=== PATIENT | male | born 2000 | race Caucasian/White ===

== ENCOUNTER 2021-10-28 13:05 | Emergency (ER) | payer OTHER, SELFPAY ==
--- NOTE | ~2021-10-28 | US_ITS ---
EXAMINATION: US scrotum doppler DATE: 10/28/2021 15:10 INDICATION: Left testicular pain. TECHNIQUE: Grayscale and Doppler ultrasound images of the testes were obtained. COMPARISON: None. FINDINGS: The right testis measures 5.2 x 3.3 x 2.7 cm. The left testis measures 4.8 x 2.9 x 2.9 cm. There is normal vascular flow to both testes. The right epididymis is normal with normal vascular wendy w. The left epididymis is normal with normal vascular flow. There is no varicocele or hydrocele. IMPRESSION: 1. Normal testes. Reviewed, dictated and finalized at location A. 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 Normal testes.
--- NOTE | ~2021-10-28 | CT_ITS ---
EXAMINATION: CT abdomen pelvis w con DATE: 10/28/2021 14:42 INDICATION: Left and right lower quadrant abdominal pain TECHNIQUE: Computed tomography (CT) of the abdomen and pelvis was performed with 100 cc Omnipaque 350 intravenous contrast. Automated exposure control and iterative reconstruction technique were employe d. Exam dose: 904.42 mGy-cm total exam DLP. COMPARISON: None. FINDINGS: There is a right lower lobe calcified pulmonary granuloma. The lung bases are clear of infi ltrate or consolidation. Heart size is normal. No pericardial or pleural effusion. The liver, spleen, gallbladder, bile ducts, pancreas, pancreatic duct and adrenal glands and kidneys are normal. Normal appendix. No bowel obstruction or intraperitoneal free air. The urinary bladder is unremarkabl e. Normal caliber of the abdominal aorta. No intraperitoneal or retroperitoneal or pelvic mass lesion or adenopathy or ascites. Very small fat-containing umbilical hernia. Included skeletal structures are unremarkable. IMPRESSION: Normal appendix; no significant abnormality Reviewed, dictated and finalized at Location A. Reviewed, dictated and finalized at location B. E PAINTER
[2021-10-28 13:10] VITALS: BP 114/58; PULSE 85; RESP 18; TEMP 36.7; O2SAT 98
--- NOTE | 2021-10-28 13:24 | ED.ABDPAIN ---
HPI - Abdominal Pain General Chief Complaint: Abdominal Pain Stated Complaint: abdominal pain Time Seen by Provider: 10/28/21 13:24 Source: patient Mode of arrival: ambulatory Limitations: no limitations History of Present Illness HPI narrative: The patient is a 20 yo previously healthy male presenting to the ER for evaluation of back and abdominal pain. Patient reporting bilateral lower back pain, worse on the left. Pt reports abdominal pain as well as scrotal pain in the left testicle. Pts pain worsening, migratory throughout his entire abdomen. Pt went to urgent care this morning and was referred to this facility for evaluation.He denies fever, chills, vomiting. He reports mild nausea. He is not constipated or having diarrhea. No dysuria or hematuria. No frequency or hesitancy. No history of nephrolithiasis. Patient denies any testicular swelling, redness, bruising. He denies rectal pain. He is sexually active, one female partner. Denies history of sexually transmitted infection. Denies penile or scrotal lesions. Denies penile discharge. Denies any swelling. Related Data Allergies Allergy/AdvReac Type Severity Reaction Status Date / Time No Known Allergies Allergy Mild Verified 10/28/21 13:42 Review of Systems Review of Systems: CONSTITUTIONAL: Denies fever, chills, or sweats. EYES: Denies visual changes, redness, or discharge. ENT: Denies rhinorrhea, congestion, sore throat, or otalgia. CARDIOVASCULAR: Denies chest pain, palpitations, or edema. RESPIRATORY: Denies cough or dyspnea. GASTROINTESTINAL: Reporting abdominal pain, nausea GENITOURINARY: Denies dysuria or hematuria. Reporting scrotal pain. SKIN: Denies rash or itching. MUSCULOSKELETAL: Reporting middle back pain, joint pain, or myalgia. NEUROLOGIC: Denies headache, numbness, or weakness. [facility] Social History Social History (Updated 10/28/21 @ 13:51 by Ligia Henley MD) Smoking status: Current every day smoker Tobacco type: e-cigarettes/vaping Alcohol intake: never Substance use: never Gender identity (if verbalized by the patient): Male Exam Narrative: GENERAL: Awake, alert, conversant HEAD: Normocephalic, atraumatic. EYES: PERRLA and EOMI. ENT: Nares clear, no rhinorrhea or epistaxis. Mucous membranes moist. NECK: Supple. CHEST: No respiratory distress, breathing even and non labored HEART: Regular rate, sinus rhythm ABDOMEN:Non distended, non tender, left CVA tenderness : Testicles are normal without edema, induration, ecchymosis, no crepitus. No lymphadenopathy bilaterally. Penis is uncircumcised, normal, glans is normal, no discharge. Shaft is normal without lesions or edema. Left testicle is mildly tender to deep palpation. No hernias palpated. Rectum is normal, no hemorrhoids. Good tone. No melanotic stool. No edema, induration. No evidence of abscess. EXTREMITIES: Normal range of motion. No edema. SKIN: Warm, dry, no rash. NEURO:No focal deficits. Alert and oriented x3 Course Vital Signs Vital signs: Vital Signs Temperature 36.7 C 10/28/21 13:10 Pulse Rate 85 10/28/21 13:10 Respiratory Rate 18 10/28/21 13:10 Blood Pressure 114/58 L 10/28/21 13:10 Pulse Oximetry 98 10/28/21 13:10 Temperature 36.7 C 10/28/21 13:10 Pulse Rate 85 10/28/21 13:10 Respiratory Rate 18 10/28/21 13:10 Blood Pressure 114/58 L 10/28/21 13:10 Pulse Oximetry 98 10/28/21 13:10 MDM - Abdominal Pain MDM Narrative Medical decision making narrative: Patient presenting for evaluation of abdominal pain. Testicular pain. On exam, patient does not have any findings consistent with testicular torsion. No testicular edema, erythema, induration. No ecchymosis. Rectal exam, patient with good tone, no hemorrhoids, no evidence of perirectal or perianal abscess. No tenderness on exam. Laboratory results are reassuring. No leukocytosis, no electrolyte derangement. CT imaging is very reassuring. At the time of jazmin
[2021-10-28 14:20] LABS: Basophils Percent Auto 0.2 % (0.2-1.2); Eosinophils Absolute Auto 0.1 K/mm3 (0-0.3); Hematocrit 47.4 % (42.0-52.0); Hemoglobin 16.2 g/dL (14.0-18.0); Immature Granulocyte Absolute 0.04 K/mm3 (0.00-0.031); Immature Granulocyte Percent A 0.4 % (0-0.5); Lymphocytes Absolute Auto 1.64 K/mm3 (0.9-3.2); Lymphocytes Percent Auto 17.6 % (18.3-44.2); Mean Corpuscular HGB Conc 34.2 g/dl (32-36); Mean Corpuscular Hemoglobin 30.2 pg (26-34); Mean Corpuscular Volume 88.4 fl (80-100); Mean Platelet Volume 10.8 fl (7.4-10.4); Monocytes Absolute Auto 0.5 K/mm3 (0.1-0.6); Monocytes Percent Auto 5.3 % (2.6-8.5); Neutrophils Percent Auto 75.5 % (45.5-73.1); Platelet Count Result 288 k/mm3 (150-375); Red Blood Count 5.36 M/mm3 (4.6-6.20); White Blood Count 9.3 K/mm3 (4.5-10.0)
[2021-10-28 14:25] LABS: Alanine Aminotransferase 16 U/L (4-50); Albumin Level 5.1 g/dL (3.7-5.6); Alkaline Phosphatase 72 U/L (58-237); Anion Gap 10 mmol/L (8-16); Aspartate Amino Transferase 23 U/L (17-59); Bilirubin,Total 0.5 mg/dL (0.2-1.3); Blood Urea Nitrogen 9 mg/dL (8-21); Calcium 9.5 mg/dL (8.9-10.7); Carbon Dioxide 28 mmol/L (22-30); Chloride 102 mmol/L (98-107); Estimated CRCL calculation 177 ml/min; Estimated Glomerular Filt Rate > 60; Glucose 96 mg/dL (65-110); Lipase 414 U/L (23-300); Potassium 3.9 mmol/L (3.4-5.0); Sodium 140 mmol/L (134-143)
[2021-10-28 14:58] LABS: Add Urine Microscopic? YES; Appearance Urine Clear (Clear); Bilirubin Urine Negative (Negative); Blood Urine Negative (Negative); Calcium Oxalate Crystals Urine Present /hpf; Color Urine Amber (Yellow); Glucose Urine UA Negative (Negative); Ketones Urine Negative (Negative); Leukocyte Esterase Ur Trace LEU/UL (Negative); Mucus Urine Heavy /lpf; Nitrate Urine Negative (Negative); Protein Urine 1+ mg/dL (Negative); Specific Grav Ur 1.032 (1.001-1.035); Squamous Epithelial Cell Urine Rare /hpf (Few); WBC Urine 0-3 /hpf
--- NOTE | 2021-10-28 15:28 | PC.NURSE ---
Called lab and spoke to Guy to add on Concepcion JOYA.
[2021-10-28] MEDS: cefTRIAXone 1 GM VIAL IM (15:44)
[2021-10-28 16:05] VITALS: BP 142/82; PULSE 78; RESP 16; TEMP 36.6; O2SAT 100
== END 2021-10-28 16:06 | disposition home or self-care (01) ==
PROVIDERS: Emergency Provider Emergency Medicine
DX: R10.9 Unspecified abdominal pain (principal); K42.9 Umbilical hernia without obstruction or gangrene; F17.290 Nicotine dependence, other tobacco product, uncomplicated
CPT/HCPCS: 36415; 74177; 76870; 80053; 81001; 83690; 85025; 87491; 87591; 93976; 96372; 96374; 99284; J0131; J0696; Q9967

== ENCOUNTER 2025-06-13 19:11 | Emergency (ER) | payer OTHER, SELFPAY ==
--- OUTSIDE RECORDS SUMMARY | 2024-01-05 08:00 | XMS_ITS ---
Author Organization [facility] Address [address] [place] [address] Care Team Providers Care Laborer Vineyard Name Role Phone Mary Cantor Primary Care Provider [phone] REASON FOR VISIT [phone] New Patient Psych Eval Social History Sex Assigned At : Social History Observation Description Sex Assigned At Male Encounters Encounter Location Date Provider Diagnosis [facility] [place] [address] 01/05/2024 Mary Cantor Plan Of Treatment Next Appt Details Provider Name:Mary dodson, 07/05/2025 08:20:00 AM, [address], [place], [address], Progress Notes * Sanchez COLONDOB: 2 (24 yo M)Acc No.[id number]:01/05/2024 UNLOCKED PROGRESS NOTE Patient: Harmeet Sanchez DELA CRUZ Provider: Stefany Cantor DNP, PMHNP-BC, HEMATOLOGY TECHNOLOGIST :2000 A ge:23 Y S ex:Male Date:01/05/2024 Address:[address] [facility] Subjective: * Chief Complaints: * 1 . [phone] New Patient Psych Eval. * Medical History: Objective: * Vitals: Assessment: Plan: * Treatment: * * Electronic signature of Najma Cantor on 06/13/2025 at 07:13 PM CDT Sign off status: Pending * Provider: Stefany Cantor, BENNY, PMHNP-BC, HEMATOLOGY TECHNOLOGIST Date: 0 01/05/2024 Generated for Printing/Faxing/eTransmitting on: 0 06/13/2025 07:13 PM CDT
--- OUTSIDE RECORDS SUMMARY | 2025-03-27 04:00 | XMS_ITS ---
Author Organization [facility] Address [address] [place] [address] Care Team Providers Care Tobacco Stripping Machine Operator Name Role Phone Mary Cantor Primary Care Provider [phone] Sergio Vazquez [phone] REASON FOR VISIT labs Social History Sex Assigned At : Social History Observation Description Sex Assigned At Male Encounters Encounter Location Date Provider Diagnosis [facility] [place] [address] 03/27/2025 Sergio Vazquez Plan Of Treatment Next Appt Details Provider Name:Mary dodson, 07/05/2025 08:20:00 AM, [address], [place], [address], Progress Notes * Sanchez COLONDOB: 2 (24 yo M)Acc No.[id number]:03/27/2025 UNLOCKED PROGRESS NOTE Patient: Harmeet JUAREZSERAFIN Sanchez Provider: Rizwana Vazquez, MSN, ENVIRONMENTAL PROJECTS ADVISOR, PICTURE PAINTER-C :2000 A ge:24 Y S ex:Male Date:03/27/2025 Address:[address] [facility] Pcp:Mary Cantor Check In:08:38 AM INSPECTOR POISING Subjective: * Chief Complaints: * 1 . Labs. * Medical History: Objective: * Vitals: Assessment: Plan: * Treatment: * * Electronic signature of Katherine Vazquez APRN, [id number] on 06/13/2025 at 07:13 PM CDT Sign off status: Pending * Provider: Rizwana Vazquez, MSN, ENVIRONMENTAL PROJECTS ADVISOR, PICTURE PAINTER-C Date: 0 03/27/2025 Generated for Marilou pena/Jorge/Javi on: 0 06/13/2025 07:13 PM CDT
[2025-06-13 19:13] VITALS: BP 126/79; PULSE 105; RESP 18; TEMP 36.7; O2SAT 97
--- OUTSIDE RECORDS SUMMARY | 2025-06-13 19:13 | XMS_ITS | Clinical Summary ---
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 Gender Identity Not on file Sexual Orientation Not on file Plan of Treatment Health Maintenance Due Date Last Done Comments Hepatitis C Virus (HCV) Screening 2000 Human Papillomavirus (HPV) Immunization (1 - Male 3-dose series) 2016 Meningococcal B Immunization (1 of 2 - Standard) 2017 Influenza Immunization (#1) 2025 08/05/2014 SARS-COV-2 Immunization (2 - season) 2025 12/10/2020 Respiratory Syncytial Virus (RSV) Immunization (Adult) (1 - 1-dose 75+ series) 2076 Hepatitis B Immunization Completed 003, 03/10/2002, 01/06/2002 Measles Mumps Rubella (MMR) Immunization Discontinued 04/16/2006, 03/09/2003 Polio (IPV) Immunization Discontinued 006, 05/12/2002, 03/10/2002, Additional history exists DTaP/Tdap/Td Immunization Discontinued 2012, 04/16/2006, 11/25/2002, Additional history exists TdaP Immunization Completed 03/30/2013 Varicella Immunization Discontinued 04/24/2014, 2002 Meningococcal Immunization (ACWY) Completed 05/17/2019, 03/30/2013 Pneumococcal Immunization Combined Aged Out No longer eligible based on patient's age to complete this topic Rotavirus Immunization Aged Out No lo nger eligible based on patient's age to complete this topic
--- OUTSIDE RECORDS SUMMARY | 2025-06-13 19:14 | XMS_ITS | Patient Health Record ---
Author Organization [facility] Address [address] [place] [address] Care Team Providers Care Medical Assistant Instructor Name Role Phone Mary Cantor Primary Care Provider Taylor Madelintracee Unavailable [phone] SanЮлия schaffer Unavailable [phone] Allergies No Known Allergies Results Component Value Reference Range Notes CMP 14 Comprehensive Metabol ic Panel* Reviewed date:03/30/2025 12:40:24 PM Interpretation:Normal Performing Lab:[facility] [place], [address] [facility], [place], Phone - [phone], Director - Nabila Notes/Report: Glucose 99 70-99 mg/dL BUN 11 6-20 mg/dL Creatinine 0.96 0.76-1.27 mg/dL eGFR 114 >59 mL/min/1.73 BUN/Creatinine Ratio 11 9-20 Sodium 139 134-144 mmol/L Potassium 4.6 3.5-5.2 mmol/L Chloride 100 96-106 mmol/L Carbon Dioxide, Total 25 20-29 mmol/L Calcium 9.8 8.7-10.2 mg/dL Protein, Total 6.8 6.0-8.5 g/dL Albumin 4.6 4.3-5.2 g/dL Globulin, Total 2.2 1.5-4.5 g/dL Bilirubin, Total 0.3 0.0-1.2 mg/dL Alkaline Phosphatase 76 44-121 IU/L AST (SGOT) 34 0-40 IU/L ALT (SGPT) 36 0-44 IU/L CBC With Differential/Platel et* Reviewed date:03/30/2025 12:40:24 PM Interpretation:Normal Performing Lab:[facility], [address] [facility], Phone - [phone], Director - Nabila Notes/Report: WBC 5.7 3.4-10.8 x10E3/uL RBC 5.28 4.14-5.80 x10E6/uL Hemoglobin 16.2 13.0-17.7 g/dL Hematocrit 50.2 37.5-51.0 % MCV 95 79-97 fL MCH 30.7 26.6-33.0 pg MCHC 32.3 31.5-35.7 g/dL RDW 12.6 11.6-15.4 % Platelets 242 150-450 x10E3/uL Neutrophils 64 Not Estab. % Lymphs 24 Not Estab. % Monocytes 7 Not Estab. % Eos 3 Not Estab. % Basos 1 Not Estab. % Neutrophils (Absolute) 3.7 1.4-7.0 x10E3/uL Lymphs (Absolute) 1.4 0.7-3.1 x10E3/uL Monocytes(Absolute) 0.4 0.1-0.9 x10E3/uL Eos (Absolute) 0.2 0.0-0.4 x10E3/uL Baso (Absolute) 0.0 0.0-0.2 x10E3/uL Immature Granulocytes 1 Not Estab. % Immature Grans (Abs) 0.0 0.0-0.1 x10E3/uL Breathalyzer Reviewed date:03/23/2025 11:37:07 AM Interpretation: Performing Lab: Notes/Report: BONY 0.000 14 Panel Urine Drug Screen Reviewed date:03/23/2025 11:38:14 AM Interpretation: Performing Lab: Notes/Report: THC POS VLADISLAV POS MOP (OPI) neg AMP neg MET POS BAR neg BZO neg MDMA neg MTD neg OXY neg PCP neg BUP neg TCA neg FTY neg QuantiFERON-TB Gold Plus (18 5624) Reviewed date:03/30/2025 12:40:24 PM Interpretation:Normal Performing Lab:[facility] [place], [address] [facility], [place], Phone - [phone], Director - Nabila Notes/Report: QuantiFERON Incubation Incubation performed. QuantiFERON-TB Gold Plus Negative Negative No response to M tuberculosis antigens detected. Infection with M tuberculosis is unlikely, but high risk individuals should be considered for additional testing (ATS/IDSA/CDC Clinical Practice Guidelines, 2017). The reference range is an Antigen minus Nil result of <0.35 IU/mL. Chemiluminescence immunoassay methodology QuantiFERON Criteria QuantiFERON-TB Gold Plus is a qualitative indirect test for M tuberculosis infection (including disease) and is intended for use in conjunction with risk assessment, radiography, and other medical and diagnostic evaluations. The QuantiFERON-TB Gold Plus result is determined by subtracting the Nil value from either TB antigen (Ag) value. The Mitogen tube serves as a control for the test. QuantiFERON TB1 Ag Value 0.05 QuantiFERON TB2 Ag Value 0.07 QuantiFERON Nil Value 0.03 QuantiFERON Mitogen Value >10.00 Reason For Referral Reason Therapy- including g rief of friend. High PHQ9 score. On the crisis unit. He reports that since he has been admitted that he has not been feeling like hurting himself. Diagnosis 1 Bipolar 1 disorder ( F31.9) Referral Organization [facility] Referring Provider First Name Mary Referring Provider Last Name Sakshi Referring Provider Speciality Psychiatry Referred Provider Specialty [facility] General Notes Karina Isaac 2024 02:36:52 PM > Interested in therapy services for managing stress and grief. Client has a new phone number [phone] --> [phone] Clinical Notes Karina Isaac 2024 02:37:12 PM > Clinician spoke with client on the phone. Client reported still be interested in therapy services and provided more detail on what he was seeking out of therapy. Clinician informed client that they will meet with second shift supervisor for next steps and will contact the client when ready.Poncho Paige C 04/12/2025 02:44:34 PM > Clinician attempted to reach client on the update number provided to connect him with central access. VMB not set up yet and clinician was unable to leave a message.Poncho Paige C 05/17/2025 02:50:29 PM > Clinician attempted to reach client on the update number provided to connect him with central access. VMB not set up yet and clinician was unable to leave a message. Referral Priority Routine Reason High PHQ9 score. On the crisis unit. He reports that since he has been admitted that he has not been feeling like hurting himself. 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 Do not give within 4 hours of diphenhydramine.; Duration: 30 days 03/23/2025 Active Nicotine 21 MG/24HR 1 patch to skin. Transdermal Once a day, removing at bedtime; Duration: 28 days 03/23/2025 Active QUEtiapine Fumarate 100 MG Oral; Duration: 30 Days Not- Taking [place] Carbonate 300 MG TAKE 1 CAPSULE BY MOUTH TWICE DAILY DIRECTED Oral; Duration: 30 Days Not-Taki ng Nicotine Polacrilex 4 MG Chew 1 piece as needed for nicotine cravings Mouth/Throat up to every hour (max of 20 pieces per day); Duration: 7 days 03/23/2025 Active hydrOXYzine HCl 50 MG 1 tablet as needed Orally 3 times a day; Duration: 24 days 03/28/2025 Active Vraylar 1.5 MG 1 capsule Orally Onc e a day; Duration: 24 days 03/28/2025 Active Melatonin 5 MG 1 tablet at bedtime as needed Orally Once a day; Duration: 30 days 03/23/2025 Active Multi Vitamin - 1 tablet Orally Once a day; Duration: 30 days 03/23/2025 Active Social History Tobacco Use: Social History Observation Description Date Details (start date - stop date) Unknown Sex Assigned At : Social History Observation Description Sex Assigned At Male PRAPARE Question Answer Notes Date Completed/Updated: 03/23/2025 What is your current housing situation? I have h ousing Are you worried about losing your housing? No What is the highest level of school that you have finished? High school diploma or GED What is your current work situation? Unemployed and seeking work In the past year, have you o r any family members you live with been unable to get any of the following when it was really needed? Check all that apply Medicine or any health care (medical, dental, mental health or vision) Has lack of transportation k ept you from medical appointments, meetings, work or from getting things needed for daily living? Yes, it has kept me from medical appointments or from getting my medications,Yes, it has kept me from non-medical meetings, appointments, work, or getting things needed for daily living How often do you see or talk to people that you care about and feel close to? (For example: talking to friends on the phone, visiting friends or family, going to quaker or club meetings) 3 to 5 times a week How stressed are you? Stress is when someone feels tense, nervous, anxious, or can\t sleep at night because their mind is troubled Quite a bit In the past year have you sp ent more than 2 nights in a row in a longterm, [facility]cfp, skilled nursing center, or juvenile correctional facility? No Are you a refugee? No What country are you from? [place] Do you feel physically and e motionally safe where you currently live? Yes In the past year, have you b een afraid of your partner or ex-partner? No PRAPARE Score: 9 Tobacco Control (Standard) Question Answer Notes Tobacco use: Uses tobacco in other forms Additional Findings: Tobacco user e-cigarette Problems Problem Type SNOMED Code ICD Code Onset Dates Problem Status W/U Status Risk Notes Problem Information temporarily unavailable Bipolar 1 disorder (F31.9) Active confirmed Problem Information temporarily unavailable Obesity (BMI 30-39.9) (E66.9) Active confirmed Problem Information temporarily unavailable Nicotine dependence with current use (F17.200) Active confirmed Vital Signs Heart Rate 109 /min 03/23/2025 Temperature 98.2 degrees Fahrenheit 03/23/2025 Respiratory Rate 18 /min 03/23/2025 Blood pressure diastolic 80 mm Hg 03/23/2025 Oximetry 99 % 03/23/2025 Height 74 in 03/28/2025 Blood pressure systolic 142 mm Hg 03/23/2025 Weight 254.8 lbs 03/23/2025 BMI 32.71 kg/m2 03/23/2025 Encounters Encounter Location Date Provider Diagnosis [facility] [address] [place] [address] 03/27/2025 Sergio Vazquez [facility] [address] [place] [address] 03/23/2025 Sergio Vazquez Routine general medical examination at a health care facility Z00.00 ; Obesity (BMI 30-39.9) E66.9 and Nicotine dependence with current use F17.200 [facility] [address] [place] [address] 03/23/2025 Юлия Pozo Bipolar 1 disorder F31.9 [address] [place] [address] 03/28/2025 Mary Cantor Bipolar 1 disorder F31.[address] [place] [address] 06/12/2025 Mary Cantor Bipolar 1 disorder F31.[address] [place] [address] 06/12/2025 Mary Cantor Assessments Encounter Date Diagnosis (ICD Code) Assessment Notes Treatment Notes Treatment Clinical Notes Section Notes 03/23/2025 Routine general medical examination at a [facility] facility (ICD-10 - Z00.00) Admit to the Mental Health/Crisis Residential Unit and initiate standing/protocol orders: The following PRN medications may be self-administered by patients under the supervision of approved staff or administered by nursing staff: Ibuprofen 200mg, 2-4 tablets by mouth (with food) every 6 hours as needed for pain (unless on lithium). (NOTE: Ibuprofen and acetaminophen may be given together, but alternating is recommended for continuous pain relief. Guaifenesin 400 mg, 1 tablet by mouth every four hours as needed for cough and chest congestion (take with large glass of water). Loratadine 10 mg, 1 tablet by mouth daily as needed for allergies, watery itchy eyes, or sinus drainage. Throat Lozenges, up to 4 tablets by mouth every three to four hours as needed for sore throat. Antacid tablets, 1-2 tablets by mouth every one to two hours as needed for indigestion or heart burn. If the client prefers liquid, could use: Liquid Antacid : 1 ounce by mouth up to four times daily as needed for indigestion or heartburn Omeprazole 20mg, 1 capsule by mouth once daily for 14 days for frequent heartburn (frequent heartburn is more than 2 episodes per week). Do not exceed 14 days. Do not give to client already taking a proton-pump inhibitor: esomeprazole (Nexium), lansoprazole (Prevacid), pantoprazole (Protonix), rabeprazole (Aciphex), dexlansoprazole (Dexilant) Zofran ODT disintegrating (under the tongue) 4 mg, 1-2 tablets every 8 hours as needed for nausea/vomiting. Milk of Magnesia (MOM): 1 ounce (30 milliliters) by mouth every day as needed for constipation. OR Miralax: Stir and fully dissolve 17 grams (1 packet or 1 capful to measured line) in any 4 to 8 ounces of beverage then drink once daily for constipation. Do not use for more than 7 days. OR Docusate 100 mg, 1 capsule twice daily as needed for constipation Hydrocortisone 1% Cream, apply topically (to the skin) to the affected area up to three times daily as needed for itching or inflammation (avoid eyes and genitals). 2% Antifungal Cream, apply topically (to the skin) as directed as needed to affected areas for athlete's foot or jock itch. Triple Antibiotic Ointment, apply topically (to the skin) up to three times daily as needed for minor cuts and scrapes. Carmex or Chapstick, apply topically (to the skin) as needed for chapped lips and skin. Orajel, apply to affected areas as needed for mouth or tooth pain. Lubricating Eye Drops, instill 1-2 drops to the affected eye(s) as needed for dry/irritated eye(s). Hemorrhoid medications, apply to affected area according to directions as needed for hemorrhoid discomfort and itch. Nix (Permethrin 1%) cream 2 ounces, apply topically (to the skin) as directed as needed for head lice. Sunscreen 30 SPF, Apply to exposed skin prior to exposure to sun. The following PRN medications must be approved by nursing staff before self-administration by patients: Diphenhydramine 25 mg, 2 tablets by mouth every 4 hours as needed for allergic reaction or itchy rash. Caution: Do not use hydroxyzine within 4 hours of diphenhydramine and vice versa. Loperamide 2 mg capsules, may give two capsules by mouth for the initial dose, followed by one capsule up to 3 times a day as needed for diarrhea. Acetaminophen 500 mg, 1 - 2 tablets by mouth every six hours as needed for pain. (NOTE: Ibuprofen and acetaminophen may be given together, but alternating is recommended for continuous pain relief). Oxygen-May administer oxygen 2L/min via nasal cannula if O2 saturation is less than 92%, AND client complains of shortness of breath. Target O2 saturation is 94-98%. Caution: Remember too much oxygen can be detrimental to a client with COPD. Oxygen is a drug and should be delivered by trained staff only. Nurses may remove superficial splinters and sutures from skin lacerations. May apply gauze or bandages to any weeping wounds. Contact nursing if there is pus, a foul odor, increased pain/redness/swelli ng, or if soaking through bandages. 03/23/2025 Obesity (BMI 30-39.9) (ICD-10 - E66.9) 03/23/2025 Bipolar 1 disorder (ICD-10 - F31.9) 03/28/2025 Bipolar 1 disorder (ICD-10 - F31.9) Start Vraylar to help with mood instability. He can continue the current hydroxyzine standing order, but use the new order for hydroxyzine on discharge. Continue services as scheduled. Labs completed recently. May self-administer medications or be administered own oral medications per [facility] protocols. Provided informed consent with understanding of side effects, adverse effects, risks and benefits as well as alternative treatments as previously discussed and with the above recommended medications & other aspects of the treatment program. Agrees to return sooner if symptoms worsen or suicidal or homicidal ideations occur. 06/12/2025 Bipolar 1 disorder (ICD-10 - F31.9) 03/23/2025 Nicotine dependence with current use (ICD-10 - F17.200) 03/23/2025 Other Clinician met w ith client to assess needs for residential services. Clinician gathered information regarding historical presentation of mental health and substance use symptoms including withdrawal, HIV Risk assessment, psychiatric hospitalization history and presenting concern. Clinician conducted PHQ9 and CSSRS assessments as well as social drivers of health screening for the purposes of identifying additional service needs. Plan Of Treatment Future Test Test Name Order Date 12 Panel Urine Drug Screen 03/23/2025 Next Appt Details Provider Name:Mary Wise Oscar dodson, 07/05/2025 08:20:00 AM, [address], [place], [address], Insurance Providers Payer Name Payer Address Payer Phone Subscriber Number Group Number Insured Name Patient Relationship to Insured Coverage Start Date Coverage End Date [employer] [address] [place] [address] [id number] Sanchez Cevallos Self - patient is the insured 4 [employer] [address] [place] [address] [id number] Sanchez Cevallos Self - patient is the insured 4 [employer]EV[employer]IST[employer] MANA[employer] [address] [place] [address] [id number] Sanchez Cevallos Self - patient is the insured 5 Medical (General) History Surgical History Surgery Date(Month/Year) Ear Tubes inserted Hospitalization History Reason Date(Month/Year) [facility] 2022
--- NOTE | 2025-06-13 20:18 | PC.NURSE ---
Pt was called 2x at 2018
--- OUTSIDE RECORDS SUMMARY | 2025-06-13 21:42 | XMS_ITS | Clinical Summary ---
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
== END 2025-06-13 22:30 | disposition left against medical advice (07) ==
LOC: ANHED 21:40
DX: R10.9 Unspecified abdominal pain (principal)
CPT/HCPCS: 99199